=== PATIENT | male | born 1995 | race American Indian/Alaskan Native ===

== ENCOUNTER 2018-04-12 20:49 | Emergency (ER) | payer OTHER ==
[2018-04-12 21:28] VITALS: BP 121/67
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
[2018-04-12] MEDS ORDERED: TORADOL IM ONE (23:29)
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
== END 2018-04-12 23:56 | disposition home or self-care (01) ==
LOC: ED 20:49
DX: S39.012A Strain of muscle, fascia and tendon of lower back, initial encounter (principal); F17.200 Nicotine dependence, unspecified, uncomplicated; V89.2XXA Person injured in unspecified motor-vehicle accident, traffic, initial encounter; Y93.89 Activity, other specified; Y92.488 Other paved roadways as the place of occurrence of the external cause; Y99.8 Other external cause status
CPT/HCPCS: 96372; 99282; J1885